=== PATIENT | male | born 2000 | race Hispanic/Latino ===

== ENCOUNTER 2025-02-23 20:42 | Emergency (ER) | payer SELFPAY ==
[2025-02-23 20:47] VITALS: BP 152/104
[2025-02-23 21:24] LABS: Hematocrit 42.9 % (39.0-52.0); Hemoglobin 15.2 g/dL (13.0-18.0); Mean Corp Hgb Conc. 35.4 g/dL (33.0-37.0); Mean Corpuscular Volume 86.3 fL (80.0-94.0); Nucleated Red Blood Cells % 0 % (-); Platelet Count 213 10^3/uL (130-400); Red Cell Dist. Width 12.7 % (11.5-14.5)
[2025-02-23 21:26] LABS: ALT (SGPT) 37 U/L (0-50); AST (SGOT) 42 U/L (17-59); Albumin 5.1 g/dl (3.5-5.0); Alkaline Phosphatase 95 U/L (38-126); Blood Urea Nitrogen 19 mg/dl (9-20); Calcium 9.7 mg/dl (8.4-10.2); Carbon Dioxide 23 mmol/L (22-30); Chloride 106 mmol/L (98-107); Glucose 141 mg/dl (70-99); Potassium 4.3 mmol/L (3.5-5.1); Sodium 136 mmol/L (135-145); Total Protein 8.2 g/dl (6.3-8.2); eGFR > 60.00
[2025-02-23 21:29] LABS: COVID-19 Antigen Positive (Negative)
[2025-02-23 21:50] LABS: Troponin I < 0.012 ng/ml
[2025-02-23 22:00] VITALS: BP 149/89
--- NOTE | 2025-02-23 22:01 | ED.GENMED ---
History of Present Illness
General
Chief Complaint: Cold/Flu/URI Symptoms
Time Seen by Provider: 02/23/25 22:01
History of Present Illness
History of Present Illness:
FOCUSED PAST MEDICAL HISTORY
- The patient denies any significant past medical history
REVIEW OF OLD RECORDS
- No old records available for review in [facility]
Note:
CHIEF COMPLAINT(S)
Chest discomfort.
HISTORY OF PRESENT ILLNESS
The patient is a 21-year-old male with two days of congestion and sore throat who experienced the onset of chest discomfort this evening at approximately 4 p.m. The discomfort was self-limiting. He reported being exposed to heat earlier in the day
and consumed very cold ice water in an effort to remain hydrated, which he associated with the significant chest pain that followed. Currently, he feels an improvement in his condition.
PHYSICAL EXAM
- General: Well appearing in no distress
- HEENT: Moist oral mucosa
- Cardiovascular: No murmurs, borderline tachycardic heart rate, regular rhythm, some mild anterior chest wall tenderness
- Pulmonary: No respiratory distress, breath sounds are clear and equal
- Abdomen: Soft with no peritoneal signs, no tenderness
- Neurologic: Excellent strength all extremities, no coordination deficits
- Psychiatric: Appropriate mental status, normal insight and judgement
- Extremities: Nontender, no edema, moves all extremities equally
- Skin: No rash, no lesions
PLAN
The patient was administered ibuprofen (motron) and advised to continue with ibuprofen as an outpatient. Additionally, he was instructed to isolate for five days starting from yesterday due to a positive COVID-19 test.
DIFFERENTIAL DIAGNOSIS
The Differential Diagnosis includes, in no particular order and is not limited to:
- Viral upper respiratory infection
- Costochondritis
- Esophageal spasm
- Myocardial ischemia
- Pneumonia
- Acute coronary syndrome
- Gastroesophageal reflux disease
- Pericarditis
- Pleuritis
- Anxiety-related chest pain
SUMMARY OF ENCOUNTER
The patient was seen in the emergency department for chest discomfort experienced after consuming cold water. Evaluation included an examination which revealed clear lungs and borderline tachycardia. Laboratory results indicated a normal white
count, mild lymphopenia, unremarkable chemistry, and troponin levels less than 0.20 ng/mL. A positive COVID-19 test was noted. The patient was administered ibuprofen and advised to continue its use [id number] while following isolation
guidelines due to COVID-19. His symptoms had improved prior to discharge.
MEDICATION RECONCILIATION
- Ibuprofen provided during the visit and prescribed for outpatient use.
MEDICAL DECISION MAKING
-Complexity of Data Reviewed:
Chronic conditions affecting care: None specifically discussed, a detailed differential diagnosis considered based on chief complaints.
-Data:
Category 1:
- Testing considered: None specifically mentioned for not being ordered.
- Tests and documents: Laboratory results reviewed included normal white count, mild lymphopenia, unremarkable chemistry, troponin <0.20 ng/mL, and COVID-19 positive result.
-Risk:
Prescription medication was prescribed: Ibuprofen for chest discomfort and guidelines for COVID-19 isolation were provided.
DIAGNOSIS
- Viral upper respiratory infection, unspecified (J06.9)
- Chest pain, unspecified (R07.9)
- COVID-19, virus identified (U07.1)
SUMMARY OF ENCOUNTER
The patient, a 21-year-old male, presented to the emergency department with chest discomfort after consuming cold water. He has been experiencing two days of congestion and sore throat, with chest discomfort occurring this evening. The discomfort
was self-limiting, and an improvement was noted prior to discharge. Physical examination revealed clear lungs and borderline tachycardia. Laboratory results were reviewed, highlighting a normal white blood cell count, mild lymphopenia, and troponin
levels under 0.20 ng/mL. A positive COVID-19 test was also noted. After evaluation, ibuprofen was administered for chest discomfort and the patient was advised on isolation due to COVID-19 and to continue ibuprofen on an outpatient basis.
DISPOSITION
Discharge
ASSESSMENT
The patient may have a viral upper respiratory infection causing chest discomfort, potentially exacerbated by esophageal spasm or costochondritis related to his respiratory symptoms and cold water intake.
EMERGENCY TREATMENTS ADMINISTERED
Ibuprofen was administered for chest discomfort.
PLAN
The patient was instructed to continue with ibuprofen (Motrin) as needed for chest discomfort and to observe isolation protocols due to the positive COVID-19 test. He is advised to self-isolate for a total of five days starting from yesterday.
INDEPENDENT REVIEW OF LABS AND INTERPRETATION OF TESTS
My independent review of labs indicates a normal white blood cell count, mild lymphopenia, and troponin level less than 0.20 ng/mL.
PATIENT EDUCATION AND COUNSELING
The patient was educated on the importance of isolation due to the positive COVID-19 test and advised on the use of ibuprofen for managing chest discomfort symptoms.
FOLLOW-UP INSTRUCTIONS
The patient was advised to monitor his symptoms and return to the emergency department if his condition worsens.
MEDICATION RECONCILIATION
The patient received ibuprofen during the visit and was prescribed ibuprofen for outpatient use.
MEDICAL DECISION MAKING
-Complexity of Data Reviewed:
Chronic conditions affecting care: None specifically discussed. The Differential Diagnosis includes viral upper respiratory infection, costochondritis, esophageal spasm, myocardial ischemia, pneumonia, acute coronary syndrome, gastroesophageal
reflux disease, pericarditis, pleuritis, and anxiety-related chest pain.
-Data:
Category 1:
Tests and documents: Laboratory results reviewed included normal white count, mild lymphopenia, unremarkable chemistry, and troponin <0.20 ng/mL. COVID-19 positive result noted.
-Risk:
Prescription medication was prescribed: Ibuprofen for chest discomfort and guidelines for COVID-19 isolation were provided.
Consideration of Admission/Observation: Escalation of care including admission/observation was considered given the complexity and risk of the patients presenting complaint, exam findings, and their underlying comorbidities. However, ultimately I
feel the patient is safe for outpatient management with close follow up. Reasoning: Work-up reassuring, does not reveal any acute life/organ-threatening processes, patients symptoms were well controlled upon reevaluation, reexamination was
reassuring, vitals are stable, patient agreeable with discharge, and is reliable for follow-up.
DIAGNOSIS
- Viral upper respiratory infection, unspecified (J06.9)
- Chest pain, unspecified (R07.9)
- COVID-19, virus identified (U07.1)
RADIOLOGY
- Breath sounds are clear, no clear indication for imaging at this time
EKG
- Sinus 103, normal axis, no acute ST abnormality
LABS
- CBC is normal, chemistries unremarkable, troponin less than 0.012, COVID-19 positive
Phy Exam
Physical Exam
Physical Exam:
See HPI
Course
Orders/Labs/Results
Orders:
Orders
02/23/25 20:51
ECG [Electrocardiogram (*1)] Urgent
Reason for Study: Chest Pain
EKG- Treatment ONCE
02/23/25 20:55
COVID-19 Antigen Urgent
Source: Nasal Swab
Complete Blood Count/With Diff Urgent
Comprehensive Metabolic Panel Urgent
Troponin I Urgent
Influenza A+B Rapid Molecular Urgent
ULYSSES Source: Nasal Swab
Specimen Description:
02/23/25 22:16
Ibuprofen [Motrin] 800 mg PO NOW STA
Abnormal Lab Results
02/23/25
20:55
Absolute Lymphs (auto) 1.0 L 10^3/uL
(1.2-3.4)
Absolute Monos (auto) 1.0 H 10^3/uL
(0.1-0.6)
Lymphocytes % 13.3 L %
(20.5-51.1)
Monocytes % 13.0 H %
(1.7-9.3)
Glucose 141 H mg/dl
(70-99)
Albumin 5.1 H g/dl
(3.5-5.0)
SARS-CoV-2 Antigen Positive A
(Negative)
02/23/25 20:55
02/23/25 20:55
Vital Signs
Initial and Last Documented VS:
Initial Vital Signs
Temp Pulse Resp BP Pulse Ox
36.9 C 110 16 152/104 98
02/23/25 20:47 02/23/25 20:47 02/23/25 20:47 02/23/25 20:47 02/23/25 20:47
Last Documented Vital Signs
Temp Pulse Resp BP Pulse Ox
36.9 C 117 24 149/89 98
02/23/25 20:47 02/23/25 22:00 02/23/25 22:00 02/23/25 22:00 02/23/25 22:04
*Pulse Oximetry
SaO2: 98
Oxygen Mode of Delivery: Room air
Patient hypoxic: no
*Critical Care Note
Total Time (30-74mins, 75-104mins- exclusive of procedures): Not Applicable
ED Attending Note
-
Portions of this chart may have been created with voice recognition software.� Occasional wrong word or��sound alike� substitutions may have occurred due to the inherent limitations of voice recognition software.
Discharge Plan
Departure
Patient Disposition: Home (Routine Discharge)
Date of Disposition: 02/23/25
Time of Disposition: 22:17
Patient with high blood pressure during this ER visit?: Yes
Discharge Problem:
COVID-19
Instructions: COVID-19 in adults (DC), BLOOD PRESSURE
Activity Restrictions/Additional Instructions:
[place] de 3 a 4 dosis de ibuprofeno (Motrin) de venta kyle cada 8 horas con alimentos crescencio unos d�as. Regrese aqu� si empeora o presenta otras inquietudes.
Discharge Date and Time
Print Language: AMHARIC
[2025-02-23] MEDS: MOTRIN 800 MG PO (22:29)
== END 2025-02-23 22:50 | disposition home or self-care (01) ==
LOC: EMR 20:42
PROVIDERS: Emergency Medicine; EMERGENCY PHYSICIAN Emergency Medicine
DX: U07.1 COVID-19 (principal); R07.89 Other chest pain; D72.810 Lymphocytopenia
CPT/HCPCS: 99284; 80053; 84484; 85025; 87502; 87811; 93005